=== PATIENT | male | born 2000 | race Caucasian/White ===

== ENCOUNTER 2024-08-06 01:40 | Day surgery (SDC) | payer OTHER, SELFPAY ==
[2024-07-30 09:10] VITALS: BMI 32.1
[2024-08-06 11:23] VITALS: BP 145/83; PULSE 68; RESP 18; TEMP 37; O2SAT 99
[2024-08-06] MEDS: LACTATED RINGERS 1,000 ML 150 ML IV CONT (11:32)
--- NOTE | 2024-08-06 12:07 | WPDANESEPPF ---
Anes - Initial Pre Proc Eval Procedure: Operation Date: 08/06/24 12:45 Proposed Procedures p Esophagogastroduodenoscopy - Jf Salas MD Date/Time: 08/06/24 12:07 Surgeon: Jf Salas MD Pre Op Diagnosis: Vomiting, unspecified, GERD Patient Data Age: 23 Gender: M Height: 1.7 m Weight: 90.3 kg Last Vital Signs Temp 37.0 C 08/06/24 11:23 Pulse 68 08/06/24 11:23 Resp 18 08/06/24 11:23 BP 145/83 H 08/06/24 11:23 Pulse Ox 99 08/06/24 11:23 O2 Del Method Room Air 08/06/24 11:23 Allergies Allergy/AdvReac Type Severity Reaction Status Date / Time No Known Allergies Allergy Verified 07/30/24 09:04 Patient hx anesthesia problems: none Family hx anesthesia problems: none Results Review: All pre-operative results and documents have been reviewed as part of the pre-operative evaluation. [facility] Social History Social History Smoking status: Never smoker Alcohol intake: never Substance use: never Substance use type: does not use Living arrangements: with family Spiritual care concerns: No Anes - Eval Final PreProcedure Day of Procedure 08/06/24 12:07 Patient weight: obese Heart: regular rate and rhythm Lungs: clear to auscultation Airway: Mallampati scale class II Neurological: alert and oriented Last oral intake: >/= 8 hours ASA classification: II Emergent: no Anesthetic plan: proceed Anesthesia type and monitoring: general GIVS and standard monitoring Results Review: All pre-operative results and documents have been reviewed as part of the pre-operative evaluation. Informed Consent: The patient's anesthetic plan and its attendant risks and benefits were discussed with the patient/family/POA. Questions were solicited and answers provided to the satisfaction of the patient/family/POA.
--- NOTE | 2024-08-06 12:24 | PM.HPGS ---
History of Present Illness History of Present Illness Consent: Risks, benefits, and alternatives have been discussed and questions answered. Patient agrees to proceed with procedure. Chief complaint: Vomiting, unspecified, GERD Narrative: Juan Crockett is a 23 year old male here for first EGD, h/o gerd on tums prn Review of Systems Review of Systems: All systems reviewed & are unremarkable except as noted in HPI and below PMFSH Social History Social History Smoking status: Never smoker Alcohol intake: never Substance use: never Substance use type: does not use Living arrangements: with family Spiritual care concerns: No Meds Home Medications and Allergies Allergies Allergy/AdvReac Type Severity Reaction Status Date / Time No Known Allergies Allergy Verified 07/30/24 09:04 Vital Signs Vital Signs - 24 hr 08/06/24 11:23 Temperature 98.6 F Pulse Rate 68 Respiratory Rate 18 Blood Pressure 145/83 H Pulse Oximetry 99 Oxygen Delivery Room Air Exam Const: General: comfortable and no acute distress HENMT: Face/Nose/Sinus: Normal nares present Eyes: General: appearance normal, both eyes and all related structures Neck: Neck: no JVD Resp: Auscultation: clear to auscultation bilaterally Cardio: Rate: regular rate Rhythm: regular rhythm GI: Inspection: non-distended GI Palp: Yes Soft to palpation Skin: General skin exam: normal color Neuro: General: gait normal Speech: normal speech Extrem: General: normal to inspection Psych: Mental Status: mental status grossly normal Assessment and Plan Assessment and plan (1) GERD (gastroesophageal reflux disease): Qualifiers: Esophagitis presence: esophagitis presence not specified Qualified Code(s): K21.9 - Gastro-esophageal reflux disease without esophagitis Code(s): K21.9 - Gastro-esophageal reflux disease without esophagitis Status: Acute Assessment and Plan: egd with bx
--- NOTE | 2024-08-06 12:33 | S_PTH ---
PATIENT: Juan Crockett LOC: [facility]#:[id number] AGE/SX: 23/M ROOM: RE08/06/[address]: Jf Salas MD : 2000 BED: DIS: 08/06/2024 SPEC #: [id number] RECD: 08/06/24 13:01 STATUS: IZABELA MARIANO #: [id number] DARCY: 08/06/24 12:[address]: Jf Salas DEPT: [facility] Surgical RECD BY: Dannie Contreras ENTERED: 08/06/24 13:02 SP TYPE: Surgical OTHR DR: Hira FosterMD Tissues: A - Esophageal Biopsy B - Gastric Biopsy Procedures: Hematoxylin and Eosin Stain Gross and Microscopic Level 4 H.Pylori
[2024-08-06 12:34] VITALS: BP 121/68; PULSE 90; RESP 18; O2SAT 97
[2024-08-06 12:43] VITALS: BP 112/68; PULSE 68; RESP 18; O2SAT 95
[2024-08-06 12:53] VITALS: BP 120/73; PULSE 64; RESP 18; O2SAT 97
== END 2024-08-06 13:07 | disposition home or self-care (01) ==
PROVIDERS: PCP Internal Medicine Gastroenterology; Referring Provider Nurse Practitioner Family; Visit Provider Internal Medicine Gastroenterology
PROC: 0DJ08ZZ Inspection of Upper Intestinal Tract, Via Natural or Artificial Opening Endoscopic (ICD-10-PCS; CPT 43239; principal; 2024-08-06 12:45)
DX: K21.00 Gastro-esophageal reflux disease with esophagitis, without bleeding (principal); K29.50 Unspecified chronic gastritis without bleeding; K44.9 Diaphragmatic hernia without obstruction or gangrene; E66.9 Obesity, unspecified; Z68.31 Body mass index [BMI] 31.0-31.9, adult
CPT/HCPCS: 43239; 88305; 88342; J2704; J7120